=== PATIENT | female | born 1980 | race Caucasian/White ===

== ENCOUNTER 2016-10-03 08:56 | Day surgery (SDC) | payer OTHER ==
[~2016-10-03] VITALS: Ht 170.2 cm; Wt 147.0 kg
== END 2016-10-03 15:30 | disposition short-term general hospital (02) ==
LOC: CLSURG 08:56 → SURGOP 08:56 → EDSTATUS 09:37 → SURGOP 15:30
PROC: 0FT44ZZ Resection of Gallbladder, Percutaneous Endoscopic Approach (ICD-10-PCS; principal; 2016-10-03)
DX: K80.12 Calculus of gallbladder with acute and chronic cholecystitis without obstruction (principal); L01.00 Impetigo, unspecified; E66.9 Obesity, unspecified; Z68.43 Body mass index [BMI] 50.0-59.9, adult; Z79.899 Other long term (current) drug therapy; Z98.890 Other specified postprocedural states
CPT/HCPCS: J0131; J0330; J0690; J1885; J2250; J2405; J3010

== ENCOUNTER → 2016-10-10 | Outpatient (CLI) | payer OTHER | END | disposition short-term general hospital (02) | LOC: CLSURG 08:15 | DX: Z48.815 Encounter for surgical aftercare following surgery on the digestive system (principal); Z87.19 Personal history of other diseases of the digestive system; Z90.49 Acquired absence of other specified parts of digestive tract ==